=== PATIENT | female | born 1960 | race Caucasian/White ===

== ENCOUNTER → 2018-05-21 | Outpatient (CLI) | payer BC | END | disposition home or self-care (01) | LOC: CARD 08:34 | PROVIDERS: ATTEND Nurse Practitioner Psychiatric/Mental Health | DX: G44.89 Other headache syndrome (principal); I65.02 Occlusion and stenosis of left vertebral artery | CPT/HCPCS: 95819 ==

== ENCOUNTER → 2018-06-24 | Outpatient (CLI) | payer BC ==
[~2018-06-24] MED LIST: REGADENOSON 0.4 MG/5 ML SYRINGE ONE
== END | disposition home or self-care (01) ==
LOC: CFH 11:35
PROVIDERS: ATTEND Nurse Practitioner Psychiatric/Mental Health
DX: G45.8 Other transient cerebral ischemic attacks and related syndromes (principal); R26.0 Ataxic gait; R55 Syncope and collapse; R07.9 Chest pain, unspecified
CPT/HCPCS: 78452; 93017; A9502; J2785

== ENCOUNTER 2018-12-05 09:01 | Observation (INO) | payer BC ==
[~2018-12-05] VITALS: Ht 162.6 cm; Wt 70.6 kg
[2018-12-05] MEDS ORDERED: ONDANSETRON 2MG/ML, 2ML ONE ×2 (09:12→17:55)
[2018-12-05] MEDS ORDERED: ASPIRIN 81 MG TABLET CHEW ONE (09:12)
[2018-12-05] MEDS ORDERED: MORPHINE SULFATE 4 MG/ML, 1ML ONE (09:13)
--- NOTE | 2018-12-05 09:13 | NUR ---
PT WAS A CODE 250 AT [facility]. PT WAS AT [place] AND STATED " I FEEL LIKE IM GOING TO PASS OUT." PT VERY PALE. PT WAS HERE FOR A PFT AND WAS HAVING CHEST PAIN " I FEEL LIKE THERE IS AN ELPHANT ON MY CHEST. " PT PLACED IN ROOM AND PLACED ON BP, CARDIAC AND CONT. PULSE OXIMETER. EKG DONE AND PRESENTED TO MD. ASSESSMENT COMPLETED. MD AT BEDSIDE ASSESSING PT. PT [id number].
--- NOTE | 2018-12-05 09:16 | NUR ---
REPORT GIVEN TO DAVID ZARATE
--- NOTE | 2018-12-05 09:20 | NUR ---
RECEIVED BEDSIDE REPORT FROM ELLIOT ELISE. ASSUMING PATIENT CARE AT THIS TIME. PIV ESTABLISHED. PT TOLERATED WITH NO COMPLICATIONS.
--- NOTE | 2018-12-05 09:25 | NUR ---
MEDICATIONS ADMINISTERED PER EMAR.
[2018-12-05 09:30] LABS: BASOPHILS # (AUTO) 0.03 x10^3/uL (0-0.1); BASOPHILS % (AUTO) 0 % (0-1); EOSINOPHILS # (AUTO) 0.22 x10^3/uL (0-0.4); EOSINOPHILS % (AUTO) 2 % (1-7); LYMPHOCYTES # (AUTO) 2.25 x10^3/uL (1-3.4); LYMPHOCYTES % (AUTO) 24 % (22-44); MD NO; MEAN CORPUSCULAR HEMOGLOBIN 25.6 pg (27.0-34.8); MEAN CORPUSCULAR HGB CONC 32.1 g/dL (32.4-35.8); MEAN CORPUSCULAR VOLUME 79.6 fL (80-100); MEAN PLATELET VOLUME 9.9 fL (7.4-10.4); MONOCYTES # (AUTO) 0.67 x10^3/uL (0.2-0.8); MONOCYTES % (AUTO) 7 % (2-9); NEUTROPHILS # (AUTO) 6.32 x10^3/uL (1.8-6.8); NEUTROPHILS % (AUTO) 67 % (42-75); PLATELET COUNT 328 x10^3/uL (130-400); RED BLOOD COUNT 4.81 x10^6/uL (3.82-5.3)
[2018-12-05] MEDS ORDERED: ONDANSETRON 2MG/ML, 2ML IVPush ONE (09:30)
[2018-12-05] MEDS ORDERED: ASPIRIN 81 MG TABLET CHEW PO ONE (09:30)
[2018-12-05] MEDS ORDERED: MORPHINE SULFATE 4 MG/ML, 1ML IVPush PRN (09:30)
[2018-12-05] MEDS ORDERED: SODIUM CHLORIDE FLUSH 10ML SYR IVF ONE (09:30)
[2018-12-05] MEDS ORDERED: ALBUTEROL/IPRATROPIUM 2.5MG/0.5MG, 3 ML NPPB ONE (09:30)
[2018-12-05] MEDS ORDERED: ALBUTEROL/IPRATROPIUM 2.5MG/0.5MG, 3 ML ONE (09:31)
[2018-12-05 09:45] LABS: ALANINE AMINOTRANSFERASE 10 U/L (12-78); ALBUMIN 3.7 g/dL (3.4-5.0); ANION GAP 10 mmol/L (5-15); CALCIUM 8.6 mg/dL (8.5-10.1); CHLORIDE 103 mmol/L (98-107); CREATININE 1.19 mg/dL (0.55-1.02)
[2018-12-05 09:49] LABS: ALKALINE PHOSPHATASE 129 U/L (45-117); BILIRUBIN,TOTAL 0.3 mg/dL (0.2-1.0); INTERNATIONAL NORMALIZED RATIO 1.01 (0.93-1.1); PROTHROMBIN TIME 10.6 Seconds (9.6-11.5); TOTAL PROTEIN 6.8 g/dL (6.4-8.2); TROPONIN I < 0.015 ng/mL (0.000-0.045)
--- NOTE | 2018-12-05 09:51 | NUR ---
BEDSIDE REPORT TO ELLIOT PARRA.
[2018-12-05] MEDS ORDERED: NITROGLYCERIN OINT 2%, 1GM TP ONE (10:30)
[2018-12-05] MEDS ORDERED: OMNIPAQUE 350 MG/ML, 100ML BOTTLE ONE (10:44)
[2018-12-05] MEDS ORDERED: POLYETHYLENE GLYCOL 17 GM PACKET PO PRN (12:30)
[2018-12-05] MEDS ORDERED: ONDANSETRON ODT 4 MG PO PRN (12:30)
[2018-12-05] MEDS ORDERED: LABETALOL 5MG/ML, 20ML IVPush PRN (12:30)
[2018-12-05] MEDS ORDERED: ONDANSETRON 2MG/ML, 2ML IVPush PRN (12:30)
--- NOTE | 2018-12-05 14:39 | NUR ---
MED REC UNABLE TO COMPLETE DUE TO UNKNOWN MEDS AND DOSES. FLOOR RN MADE AWARE THAT FRIEND WILL BE BRINGING MEDS DOWN.
[2018-12-05 16:37] LABS: FREE T4 (FREE THYROXINE) 0.91 ng/dL (0.76-1.46); TROPONIN I < 0.015 ng/mL (0.000-0.045)
[2018-12-05] MEDS ORDERED: ENOXAPARIN 40 MG/0.4 ML ONE (18:05)
[2018-12-05] MEDS: ENOXAPARIN 40 MG/0.4 ML SQ SCH (18:06)
[2018-12-05 19:33] VITALS: BP 109/68
[2018-12-05] MEDS ORDERED: MAALOX/HYOSCYAMINE/LIDOCAINE 45 ML BTL PO ONE (21:30)
[2018-12-05] MEDS ORDERED: PROMETHAZINE 25 MG/ML, 1ML IM PRN (22:30)
[2018-12-06 00:55] VITALS: BP 100/64
[2018-12-06] MEDS ORDERED: PROCHLORPERAZINE 5 MG/ML, 2ML IV PRN (06:30)
[2018-12-06 06:53] VITALS: BP 122/76
[2018-12-06] MEDS ORDERED: PANTOPRAZOLE 40 MG IV IVPush SCH (07:30)
[2018-12-06] MEDS ORDERED: PANTOPRAZOLE 40 MG IV ONE (09:31)
[2018-12-06] MEDS ORDERED: DOCUSATE 100 MG CAPSULE ONE (09:38)
[2018-12-06] MEDS ORDERED: SENNA/DOCUSATE TABLET ONE (09:39)
[2018-12-06] MEDS: SENNA/DOCUSATE TABLET PO SCH (09:40)
[2018-12-06] MEDS ORDERED: BACL5TAB PO (11:18)
[2018-12-06] MEDS ORDERED: TRAZ-137 PO (11:18)
[2018-12-06] MEDS ORDERED: TIZA4TAB PO (11:18)
[2018-12-06] MEDS ORDERED: DULO20CA17 PO (11:18)
[2018-12-06] MEDS ORDERED: [UNRECOGNIZED DRUG - CODE] PO (11:18)
[2018-12-06] MEDS ORDERED: MELO15TA24 PO (11:18)
[2018-12-06] MEDS ORDERED: BUSP7.5T3 PO (11:18)
[2018-12-06] MEDS ORDERED: OXYC-302 PO (11:18)
[2018-12-06] MEDS ORDERED: CYAN10002 INJ (11:18)
[2018-12-06] MEDS ORDERED: CLON0.5T11 PO (11:18)
[2018-12-06] MEDS ORDERED: RIZA10TA20 PO (11:22)
[2018-12-06] MEDS ORDERED: OXYcodone/APAP 5/325MG TABLET PO PRN (11:30)
[2018-12-06] MEDS ORDERED: METHYLPHENIDATE HCL 5 MG PO SCH (12:00)
[2018-12-06] MEDS: RIZATRIPTAN 10MG TABLET PO PRN (13:19)
[2018-12-06 14:27] VITALS: BP 122/79
[2018-12-06] MEDS: TIZANIDINE 4MG TABLET PO SCH ×2 (16:10→22:09)
[2018-12-06] MEDS: ENOXAPARIN 40 MG/0.4 ML SQ SCH (18:00)
[2018-12-06] MEDS ORDERED: ENOXAPARIN 40 MG/0.4 ML ONE (18:03)
[2018-12-06] MEDS: SODIUM CHLORIDE 0.9% 1,000 ML IV SCH (18:16)
[2018-12-06] MEDS ORDERED: TRAZODONE 100MG TABLET PO SCH (21:00)
[2018-12-06] MEDS ORDERED: METOPROLOL TARTRATE 25 MG TABLET PO SCH (21:00)
[2018-12-06] MEDS ORDERED: DULOXETINE 20 MG CAPSULE.DR PO SCH (21:00)
[2018-12-06 21:28] VITALS: BP 110/70
[2018-12-06 22:07] VITALS: BP 121/58
[2018-12-06] MEDS: BUSPIRONE 5 MG TABLET PO SCH (22:08)
[2018-12-07 00:41] VITALS: BP 88/55
[2018-12-07] MEDS: RIZATRIPTAN 10MG TABLET PO PRN ×2 (04:09→14:22)
[2018-12-07] MEDS: SODIUM CHLORIDE 0.9% 1,000 ML IV SCH (04:12)
[2018-12-07 04:13] VITALS: BP 119/72
[2018-12-07] MEDS ORDERED: PANTOPROZOLE 40MG TABLET PO SCH (06:00)
[2018-12-07 06:03] LABS: BASOPHILS # (AUTO) 0.02 x10^3/uL (0-0.1); BASOPHILS % (AUTO) 0 % (0-1); EOSINOPHILS # (AUTO) 0.13 x10^3/uL (0-0.4); EOSINOPHILS % (AUTO) 2 % (1-7); LYMPHOCYTES % (AUTO) 33 % (22-44); MD NO; MEAN CORPUSCULAR HEMOGLOBIN 25.1 pg (27.0-34.8); MEAN CORPUSCULAR HGB CONC 31.6 g/dL (32.4-35.8); MEAN CORPUSCULAR VOLUME 79.5 fL (80-100); MEAN PLATELET VOLUME 10.2 fL (7.4-10.4); MONOCYTES # (AUTO) 0.45 x10^3/uL (0.2-0.8); MONOCYTES % (AUTO) 8 % (2-9); NEUTROPHILS # (AUTO) 3.04 x10^3/uL (1.8-6.8); NEUTROPHILS % (AUTO) 56 % (42-75); PLATELET COUNT 277 x10^3/uL (130-400); RED BLOOD COUNT 4.73 x10^6/uL (3.82-5.3); RED CELL DISTRIBUTION WIDTH 17.2 % (9.6-15.2)
[2018-12-07 06:08] LABS: CALCIUM 8.5 mg/dL (8.5-10.1); CHLORIDE 109 mmol/L (98-107)
[2018-12-07 06:12] LABS: ALANINE AMINOTRANSFERASE 22 U/L (12-78); ALBUMIN 3.4 g/dL (3.4-5.0); ALKALINE PHOSPHATASE 111 U/L (45-117); ANION GAP 6 mmol/L (5-15); BILIRUBIN,TOTAL 0.5 mg/dL (0.2-1.0); GAMMA GLUTAMYL TRANSPEPTIDASE 55 U/L (5-55); TOTAL PROTEIN 6.4 g/dL (6.4-8.2)
[2018-12-07] MEDS ORDERED: POTASSIUM CHLORIDE 20 MEQ TAB.ER.PRT PO ONE (07:00)
[2018-12-07 07:16] VITALS: BP 115/75
[2018-12-07] MEDS: TIZANIDINE 4MG TABLET PO SCH (08:57)
[2018-12-07] MEDS: BUSPIRONE 5 MG TABLET PO SCH (08:57)
[2018-12-07] MEDS: METHYLPHENIDATE 10 MG TABLET PO SCH ×2 (08:59→12:18)
[2018-12-07] MEDS: SENNA/DOCUSATE TABLET PO SCH (09:00)
[2018-12-07] MEDS ORDERED: ASPI81TA45 PO (11:14)
[2018-12-07] MEDS ORDERED: ATOR40TA78 PO (11:14)
[2018-12-07] MEDS ORDERED: PANT40TA5 PO (11:14)
[2018-12-07] MEDS ORDERED: ASPIRIN 81 MG TABLET EC PO SCH (11:30)
[2018-12-07 13:09] VITALS: BP 115/69
[2018-12-07] MEDS ORDERED: ATORVASTATIN 40 MG TABLET PO SCH (21:00)
== END 2018-12-07 16:36 | disposition home or self-care (01) ==
LOC: ED 11:13 → EDIP 11:43 → INTOOBSV 11:43 → 5SO 15:07 → DCLOUNGE 16:57 → 5SO 16:57 → UNDODISOB 17:15
PROVIDERS: ADMIT Internal Medicine; ATTEND Internal Medicine
DX: R07.9 Chest pain, unspecified (principal); R55 Syncope and collapse; R11.2 Nausea with vomiting, unspecified; E87.6 Hypokalemia; F02.80 Dementia in other diseases classified elsewhere, unspecified severity, without behavioral disturbance, psychotic disturbance, mood disturbance, and anxiety; F41.0 Panic disorder [episodic paroxysmal anxiety]; G20 Parkinson's disease; G31.09 Other frontotemporal neurocognitive disorder; G45.8 Other transient cerebral ischemic attacks and related syndromes; I25.10 Atherosclerotic heart disease of native coronary artery without angina pectoris; I70.8 Atherosclerosis of other arteries; K21.9 Gastro-esophageal reflux disease without esophagitis; M35.00 Sjogren syndrome, unspecified; N17.9 Acute kidney failure, unspecified; Z82.0 Family history of epilepsy and other diseases of the nervous system; Z82.49 Family history of ischemic heart disease and other diseases of the circulatory system; Z87.891 Personal history of nicotine dependence; Z23 Encounter for immunization
CPT/HCPCS: 36415; 70450; 71045; 71275; 80053; 82977; 83735; 83880; 84100; 84439; 84484; 85025; 85610; 90471; 90656; 93005; 93306; 93880; 94640; 96361; 96372; 96374; 96375; 96376; 97161; 97165; 97530; C9113; G0378; J1650; J2405; J2550; J7030; Q9967